=== PATIENT | male | born 1990 | race Two or more races ===

== ENCOUNTER 2023-11-28 11:06 | Outpatient (CLI) | payer OTHER | END 2023-11-28 11:19 | disposition home or self-care (01) | LOC: RAD 11:06 | PROVIDERS: ATTEND Obstetrics & Gynecology Obstetrics | DX: M99.01 Segmental and somatic dysfunction of cervical region (principal); M99.02 Segmental and somatic dysfunction of thoracic region; M99.03 Segmental and somatic dysfunction of lumbar region; M99.04 Segmental and somatic dysfunction of sacral region; M99.05 Segmental and somatic dysfunction of pelvic region ==

== ENCOUNTER → 2024-03-26 | Emergency (ER) | payer OTHER ==
[~2024-03-26] VITALS: Ht 175.3 cm; Wt 72.6 kg
[2024-03-26 00:28] VITALS: BP 129/87; O2SAT 97
== END | disposition left against medical advice (07) ==
LOC: ER 00:21
DX: Z53.21 Procedure and treatment not carried out due to patient leaving prior to being seen by health care provider (principal)

== ENCOUNTER → 2024-05-17 | Emergency (ER) | payer OTHER ==
[~2024-05-17] VITALS: Ht 175.3 cm; Wt 70.3 kg
[~2024-05-17] MED LIST: AMBIEN10 MG PO
== END | disposition left against medical advice (07) ==
LOC: ER 08:12
DX: M25.572 Pain in left ankle and joints of left foot (principal); G47.09 Other insomnia

== ENCOUNTER 2024-12-26 23:46 | Emergency (ER) | payer OTHER ==
[~2024-12-26] VITALS: Ht 172.7 cm; Wt 72.6 kg
[2024-12-27] MEDS ORDERED: CEFTRIAXONE SODIUM 1,000 MG VIAL IM STA (00:16)
[2024-12-27] MEDS ORDERED: CEFTRIAXONE SODIUM 1,000 MG VIAL ONE (00:35)
[2024-12-27] MEDS ORDERED: LIDOCAINE HCL 1% 10ML VIAL ONE (00:47)
[2024-12-27 03:31] VITALS: BP 140/80; O2SAT 100
== END 2024-12-27 03:33 | disposition left against medical advice (07) ==
LOC: ER 23:46
DX: S01.82XA Laceration with foreign body of other part of head, initial encounter (principal); W50.0XXA Accidental hit or strike by another person, initial encounter; Y93.89 Activity, other specified; Y92.89 Other specified places as the place of occurrence of the external cause; G47.09 Other insomnia; M54.2 Cervicalgia